=== PATIENT | female | born 1970 | race American Indian/Alaskan Native ===

== ENCOUNTER 2017-03-02 08:31 | Inpatient (IN) | payer OTHER ==
[2017-03-02 09:30] LABS: Anion Gap 19 mmol/L; BUN/Creatinine Ratio 16; Blood Urea Nitrogen 11 mg/dL (7-17); Calcium 9.3 mg/dL (8.4-10.2); Carbon Dioxide 23 mmol/L (22-30); Chloride 101.5 mmol/L (98-107); Glucose 91 mg/dL (65-100); Potassium 4.4 mmol/L (3.6-5.0); Sodium 139 mmol/L (137-145)
[2017-03-02 09:34] LABS: Basophils % (Auto) 1.1 % (0.0-1.8); Eosinophils % (Auto) 3.3 % (0.0-4.3); Hematocrit 40.6 % (30.3-42.9); Hemoglobin 13.2 gm/dl (10.1-14.3); Mean Corpuscular HGB Conc 33 % (30-34); Mean Corpuscular Hemoglobin 28 pg (28-32); Mean Corpuscular Volume 86 fl (79-97); Red Blood Count 4.73 M/mm3 (3.65-5.03); Red Cell Distribution Width 15.8 % (13.2-15.2); White Blood Count 6.7 K/mm3 (4.5-11.0)
[2017-03-02 09:44] LABS: Platelet Count 219 K/mm3 (140-440)
[2017-03-02] MEDS ORDERED: NACL 0.9% 1000 ML 1,000 ML IV ONE (12:45)
[2017-03-02] MEDS ORDERED: ASPIRIN PO ONE (12:45)
--- NOTE | 2017-03-02 13:18 | Emergency Department Report ---
ED Chest Pain HPI - General Chief Complaint: Chest Pain Stated Complaint: CHEST PAIN Time Seen by Provider: 03/02/17 12:24 Source: patient, EMS Mode of arrival: Ambulatory Limitations: No Limitations - History of Present Illness Initial Comments: 46 YO FEMALE WITH LEFT SIDED CHEST PAIN RADIATING TO HER LEFT BACK ASSOPCIATED WITH 2 EPISODES OF DIAPHORESIS, BUT NO N/V. THE PAIN WAS A 6/10 WHEN IT BEGAN BUT IS NOW 4/10. IT WAS SHARP,PRESSURE AND ACHY AT THE SAME TIMES. SHE TOOK TRAMADOL BUT HAD NO RELIEF AND WAS UNABLE TO SLEEP LAST NIGHT.. SHE HAD BEEN SMOKING FOR 10 YRS 6-7 CIGARETTES PER DAY. SHE DENIES HTN,DM, OR ELEVATED LIPIDS. SHE IS S/P HYSTERECTOMY BECAUSE OF LEIOMYOMA A FEW YRS AGO. PT WAS SEEN AT A [facility] TODAY WITH COMPLETE WORKUP AND SENT HER FOR ADMISSION AND STRESS TEST. MD Complaint: chest pain -: Gradual Onset: during rest Pain Location: left chest Pain Radiation: none Severity scale (0 -10): 3 Quality: tightness, aching, pressure Improves With: medication-other Worsens With: nothing re: diaphoresis - Related Data Home Medications Medication Instructions Recorded Confirmed Last Taken No Known Home Medications [No 03/02/17 03/02/17 Unknown Reported Home Medications] Allergies Allergy/AdvReac Type Severity Reaction Status Date / Time No Known Allergies Allergy Unverified 03/02/17 08:34 Heart Score - HEART Score History: Slightly suspicious EKG: Normal Age: 45-65 Risk factors: 1-2 risk factors Troponin: < normal limit HEART Score: 2 ED Review of Systems ROS: Stated complaint: CHEST PAIN Other details as noted in HPI Constitutional: denies: chills, fever Eyes: denies: eye pain, eye discharge, vision change ENT: denies: ear pain, throat pain Respiratory: denies: cough, shortness of breath, wheezing Cardiovascular: chest pain. denies: palpitations Endocrine: no symptoms reported, excessive sweating Gastrointestinal: denies: abdominal pain, nausea, diarrhea Genitourinary: denies: urgency, dysuria, discharge Musculoskeletal: denies: back pain, joint swelling, arthralgia Skin: denies: rash, lesions Neurological: denies: headache, weakness, paresthesias Psychiatric: denies: anxiety, depression Hematological/Lymphatic: denies: easy bleeding, easy bruising ED Past Medical Hx - Past Medical History Previous Medical History?: No - Surgical History Past Surgical History?: Yes Additional Surgical History: Hysterectomy, right knee , left hand surgery - Social History Smoking Status: Current Every Day Smoker Substance Use Type: Alcohol - Medications Home Medications: Home Medications Medication Instructions Recorded Confirmed Last Taken Type No Known Home Medications [No 03/02/17 03/02/17 Unknown History Reported Home Medications] ED Physical Exam - General Limitations: No Limitations General appearance: alert, in no apparent distress - Head Head exam: Present: atraumatic, normocephalic - Eye Eye exam: Present: normal appearance, EOMI - ENT ENT exam: Present: mucous membranes moist - Neck Neck exam: Present: normal inspection, full ROM - Respiratory Respiratory exam: Present: normal lung sounds bilaterally. Absent: respiratory distress, wheezes - Cardiovascular Cardiovascular Exam: Present: regular rate, normal rhythm. Absent: systolic murmur, diastolic murmur, rubs, gallop - GI/Abdominal GI/Abdominal exam: Present: soft, normal bowel sounds - Rectal Rectal exam: Present: deferred - Extremities Exam Extremities exam: Present: normal inspection, full ROM. Absent: pedal edema - Back Exam Back exam: Present: normal inspection, full ROM - Neurological Exam Neurological exam: Present: alert, oriented X3, CN II-XII intact - Psychiatric Psychiatric exam: Present: normal affect, normal mood - Skin Skin exam: Present: warm, dry, intact, normal color. Absent: rash ED Course Vital Signs 03/02/17 03/02/17 03/02/17 08:34 11:00 11:15 Temperature 98.4 F Pulse Rate 58 L 51 L 56 L Respiratory 20 16 12 Rate Blood Pressure 137/97 138/93 Blood Pressure [Left] O2 Sat by Pulse 100 100 100 Oximetry 03/02/17 03/02/17 03/02/17 11:31 11:44 11:45 Temperature 98.1 F Pulse Rate 47 L 55 L Respiratory 12 14 14 Rate Blood Pressure 138/93 Blood Pressure 138/93 [Left] O2 Sat by Pulse 100 100 100 Oximetry ARSH score - Arsh Score Age > 65: (0) No Aspirin use within the Past 7 Days: (0) No 3 or more CAD Risk Factors: (0) No 2 or more Angina events in past 24 hrs: (1) Yes Known CAD with more than 50% Stenosis: (0) No Elevated Cardiac Markers: (0) No ST Deviation Greater than 0.5mm: (0) No ARSH Score: 1 ED Medical Decision Making - Lab Data Result diagrams: 03/02/17 08:54 03/02/17 08:54 - EKG Data -: EKG Interpreted by Me EKG shows normal: sinus rhythm, axis, intervals - EKG Data Interpretation: nonspecific ST-T wave akira (IN INFERIOR LEAD) - Medical Decision Making CXR FROM THIS MORNING IS NEGATIVE FOR ACUTE FINDINGS , I WILL NOT REPEAT Critical care attestation.: If time is entered above; I have spent that time in minutes in the direct care of this critically ill patient, excluding procedure time. ED Disposition Clinical Impression: Chest pain Qualifiers: Chest pain type: unspecified Qualified Code(s): R07.9 - Chest pain, unspecified Disposition: -09 OP ADMIT IP TO THIS HOSP Is pt being admited?: Yes Does the pt Need Aspirin: No Condition: Stable Instructions: Chest Pain (ED) Referrals: PRIMARY CARE, [Primary Care Provider] - 3-5 Days Time of Disposition: 13:24 (CASE WAS REVIEWED WITH DR MORAN WHO WILL ADMIT [facility] PT TO THE HOSPITAL. DR SNOW OF [place] GAVE THE APPROVAL FOR PT TO REMAIN HER BECAUSE THEY HAVE NO BED.)
[2017-03-02] MEDS ORDERED: DULCOLAX PR PRN (13:22)
[2017-03-02] MEDS ORDERED: NITROSTAT SL PRN (13:22)
[2017-03-02] MEDS ORDERED: ZOFRAN IV PRN (13:22)
[2017-03-02] MEDS ORDERED: TYLENOL PO PRN (13:22)
[2017-03-02] MEDS ORDERED: SODIUM CHLORIDE FLUSH SYRINGE 10 ML IV PRN (13:22)
[2017-03-02] MEDS ORDERED: PROVENTIL IH PRN (13:22)
[2017-03-02] MEDS ORDERED: MILK OF MAGNESIA PO PRN (13:22)
[2017-03-02] MEDS ORDERED: NITRO-BID 2% TP ONE ×2 (13:28→15:48)
[2017-03-02] MEDS ORDERED: BABY ASPIRIN PO STA (13:34)
[2017-03-02 13:44] LABS: Alanine Aminotransferase 18 units/L (7-56); Albumin 4.1 g/dL (3.9-5); Albumin/Globulin Ratio 1.3 %; Alkaline Phosphatase 56 units/L (35-129); Lipase 25 units/L (13-60); Total Protein 7.2 g/dL (6.3-8.2)
[2017-03-02 13:45] LABS: Bilirubin,Direct < 0.2 mg/dL (0-0.2); Bilirubin,Indirect 0.7 mg/dL
[2017-03-02] MEDS ORDERED: BABY ASPIRIN ONE (15:47)
--- NOTE | 2017-03-02 16:21 | History and Physical Report ---
History of Present Illness Date of admission: 03/02/17 13:22 Chief complaint: My chest has been hurting me History of present illness: 46 YO Female with Nicotine Dependence presents to ED for evaluation. Pt states that she has experienced pain in her chest for the past 3 days with worsening symptoms over the past 12 hours. Pain is 4-7/10, intermittent, substernal, radiating to her left back, aching in nature, associated with diaphoresis, not worsened with exertion, or relieved with rest. Pt denies fever, chills, palpitations, shortness of breath, BRBPR, hemoptysis, prolonged immobility/ travel, leg/calf pain, individual/family history of DVT/PE, productive cough, or recent ill contacts. Pt seen and evaluated in ED and found to have symptoms consistent with ACS. Pt admitted to telemetry, Cardiology team consulted in ED. Past History Past Medical History: other (Nicotine Dependence) Past Surgical History: hysterectomy, Other (right Knee, Left hand surgery) Social history: single, smoking. denies: alcohol abuse, prescription drug abuse , IV drug use Family history: CAD, hypertension Medications and Allergies Allergies Allergy/AdvReac Type Severity Reaction Status Date / Time No Known Allergies Allergy Unverified 03/02/17 08:34 Home Medications Medication Instructions Recorded Confirmed Last Taken Type No Known Home Medications [No 03/02/17 03/02/17 Unknown History Reported Home Medications] Active Meds: Active Medications Acetaminophen (Tylenol) 650 mg PO Q4H PRN PRN Reason: Pain MILD(1-3)/Fever >100.5/BENDER Albuterol (Proventil) 2.5 mg IH Q4HRT PRN PRN Reason: Shortness Of Breath Bisacodyl (Dulcolax) 10 mg [place] QDAY PRN PRN Reason: Constipation unrelieved by MOM Famotidine (Pepcid) 20 mg PO BID OLGA Magnesium Hydroxide (Milk Of Magnesia) 30 ml PO Q4H PRN PRN Reason: Constipation Morphine Sulfate (Morphine) 2 mg IV Q4H PRN PRN Reason: Pain, Moderate (4-6) Nitroglycerin (Nitrostat) 0.4 mg SL Q5M PRN PRN Reason: Chest Pain Ondansetron HCl (Zofran) 4 mg IV Q8H PRN PRN Reason: N/V unrelieved by Reglan Sodium Chloride (Sodium Chloride Flush Syringe 10 Ml) 10 ml IV PRN PRN PRN Reason: LINE FLUSH Review of Systems Constitutional: no weight loss, no weight gain, no fever, no chills Ears, nose, mouth and throat: no ear pain, no ear discharge, no tinnitis, no decreased hearing Breasts: no change in shape, no swelling, no mass Cardiovascular: chest pain, no orthopnea, no palpitations, no rapid/irregular heart beat, no edema, no syncope, no lightheadedness Respiratory: no cough, no cough with sputum, no excessive sputum, no hemoptysis Gastrointestinal: no abdominal pain, no nausea, no vomiting, no diarrhea, no constipation Genitourinary Female: no pelvic pain, no flank pain, no menorrhagia, no dysuria Rectal: no pain, no incontinence, no bleeding Musculoskeletal: no neck stiffness, no neck pain, no shooting arm pain, no arm numbness/tingling Integumentary: no rash, no pruritis, no redness, no sores Neurological: no paralysis, no weakness, no parathesias, no numbness Psychiatric: no anxiety, no memory loss, no change in sleep habits, no sleep disturbances Endocrine: no cold intolerance, no heat intolerance, no polyphagia, no excessive thirst Hematologic/Lymphatic: no easy bruising, no easy bleeding Allergic/Immunologic: no urticaria, no allergic rhinitis, no wheezing Exam - Constitutional Vitals: Temp Pulse Resp BP Pulse Ox 98.1 F 55 L 15 138/93 100 03/02/17 11:44 03/02/17 11:44 03/02/17 15:35 03/02/17 11:44 03/02/17 15:35 General appearance: Present: mild distress - EENT Eyes: Present: PERRL ENT: hearing intact, clear oral mucosa - Neck Neck: Present: supple, normal ROM - Respiratory Respiratory effort: normal Respiratory: bilateral: CTA - Cardiovascular Heart Sounds: Present: S1 & S2. Absent: rub, click - Extremities Extremities: pulses symmetrical, No edema Peripheral Pulses: within normal limits - Abdominal General gastrointestinal: Present: soft, non-tender, non-distended, normal bowel sounds Female genitourinary: Present: normal - Integumentary Integumentary: Present: clear, warm, dry - Musculoskeletal Musculoskeletal: gait normal, strength equal bilaterally - Psychiatric Psychiatric: appropriate mood/affect, intact judgment & insight - Neurologic Neurologic: CNII-XII intact, moves all extremities Results - Labs CBC & Chem 7: 03/02/17 08:54 03/02/17 08:54 Labs: Abnormal lab results 03/02/17 Range/Units 08:54 RDW 15.8 H (13.2-15.2) % [place] % (Auto) 7.7 H (0.0-7.3) % Assessment and Plan - Patient Problems (1) ACS (acute coronary syndrome) Current Visit: Yes Status: Acute Plan to address problem: ACS protocol: Admit to telemetry, serial cardiac enzymes, ekg, telemetry, echo, stress test, cardiology consulted, morphine, nitro tabs, supplemental oxygen, aspirin (2) Nicotine dependence Current Visit: Yes Status: Acute Plan to address problem: Pt counseled, no quit date reported. (3) DVT prophylaxis Current Visit: Yes Status: Acute Plan to address problem: SCD to bLE while in bed.
[2017-03-02] MEDS: MORPHINE IV PRN ×2 (18:31→22:04)
[2017-03-02] MEDS ORDERED: PEPCID PO SCH (22:00)
[2017-03-02 22:40] LABS: Urine Drugs of Abuse Note Disclamer
[2017-03-02 23:06] LABS: RBC,Urine < 1.0 /HPF (0.0-6.0); WBC,Urine < 1.0 /HPF (0.0-6.0)
[2017-03-02 23:11] LABS: Bilirubin,Urine Negative (Negative); Ketones,Urine Negative (Negative)
[2017-03-02 23:12] LABS: Blood,Urine Negative (Negative); Leukocyte Esterase,Urine Negative (Negative); Nitrite,Urine Negative (Negative); Protein,Urine <15 mg/dL mg/dL (Negative); Urobilinogen,Urine < 2.0 mg/dL (<2.0)
[2017-03-03] MEDS: MORPHINE IV PRN (04:56)
--- NOTE | 2017-03-03 08:11 | Progress Note ---
Hospitalist Physical - Constitutional Vitals: Temp Pulse Resp BP Pulse Ox 98.3 F 64 18 131/88 99 03/03/17 04:20 03/03/17 04:20 03/03/17 05:26 03/03/17 04:20 03/03/17 04:20 General appearance: Present: mild distress Results - Labs CBC & Chem 7: 03/02/17 08:54 03/02/17 08:54 Labs: Laboratory Last Values WBC 6.7 K/mm3 (4.5-11.0) 03/02/17 08:54 RBC 4.73 M/mm3 (3.65-5.03) 03/02/17 08:54 Hgb 13.2 gm/dl (10.1-14.3) 03/02/17 08:54 Hct 40.6 % (30.3-42.9) 03/02/17 08:54 MCV 86 fl (79-97) 03/02/17 08:54 MCH 28 pg (28-32) 03/02/17 08:54 MCHC 33 % (30-34) 03/02/17 08:54 RDW 15.8 % (13.2-15.2) H 03/02/17 08:54 Plt Count 219 K/mm3 (140-440) 03/02/17 08:54 Lymph % (Auto) 33.8 % (13.4-35.0) 03/02/17 08:54 [place] % (Auto) 7.7 % (0.0-7.3) H 03/02/17 08:54 Eos % (Auto) 3.3 % (0.0-4.3) 03/02/17 08:54 Baso % (Auto) 1.1 % (0.0-1.8) 03/02/17 08:54 Lymph # 2.3 K/mm3 (1.2-5.4) 03/02/17 08:54 [place] # 0.5 K/mm3 (0.0-0.8) 03/02/17 08:54 Eos # 0.2 K/mm3 (0.0-0.4) 03/02/17 08:54 Baso # 0.1 K/mm3 (0.0-0.1) 03/02/17 08:54 Seg Neutrophils % 54.1 % (40.0-70.0) 03/02/17 08:54 Seg Neutrophils # 3.6 K/mm3 (1.8-7.7) 03/02/17 08:54 D-Dimer 167.18 ng/mlDDU (0-234) 03/02/17 12:55 Sodium 139 mmol/L (137-145) 03/02/17 08:54 Potassium 4.4 mmol/L (3.6-5.0) 03/02/17 08:54 Chloride 101.5 mmol/L (98-107) 03/02/17 08:54 Carbon Dioxide 23 mmol/L (22-30) 03/02/17 08:54 Anion Gap 19 mmol/L 03/02/17 08:54 BUN 11 mg/dL (7-17) 03/02/17 08:54 Creatinine 0.7 mg/dL (0.7-1.2) 03/02/17 08:54 Estimated GFR > 60 ml/min 03/02/17 08:54 BUN/Creatinine Ratio 16 % 03/02/17 08:54 Glucose 91 mg/dL (65-100) 03/02/17 08:54 Calcium 9.3 mg/dL (8.4-10.2) 03/02/17 08:54 Total Bilirubin 0.90 mg/dL (0.1-1.2) 03/02/17 12:55 Direct Bilirubin < 0.2 mg/dL (0-0.2) 03/02/17 12:55 Indirect Bilirubin 0.7 mg/dL 03/02/17 12:55 AST 22 units/L (5-40) 03/02/17 12:55 ALT 18 units/L (7-56) 03/02/17 12:55 Alkaline Phosphatase 56 units/L (35-129) 03/02/17 12:55 Troponin T < 0.010 ng/mL (0.00-0.029) 03/02/17 19:30 NT-Pro-B Natriuret Pep 42.83 pg/mL (0-450) 03/02/17 12:55 Total Protein 7.2 g/dL (6.3-8.2) 03/02/17 12:55 Albumin 4.1 g/dL (3.9-5) 03/02/17 12:55 Albumin/Globulin Ratio 1.3 % 03/02/17 12:55 Triglycerides 107 mg/dL (2-149) 03/02/17 12:55 Cholesterol 146 mg/dL (50-199) 03/02/17 12:55 LDL Cholesterol Direct 76 mg/dL (50-130) 03/02/17 12:55 HDL Cholesterol 49 mg/dL (40-59) 03/02/17 12:55 Cholesterol/HDL Ratio 2.97 % 03/02/17 12:55 Lipase 25 units/L (13-60) 03/02/17 12:55 Urine Color Yellow (Yellow) 03/02/17 22:08 Urine Turbidity Clear (Clear) 03/02/17 22:08 Urine pH 6.0 (5.0-7.0) 03/02/17 22:08 Ur Specific [place] 1.010 (1.003-1.030) 03/02/17 22:08 Urine Protein <15 mg/dl mg/dL (Negative) 03/02/17 22:08 Urine Glucose (UA) Negative mg/dL (Negative) 03/02/17 22:08 Urine Ketones Negative mg/dL (Negative) 03/02/17 22:08 Urine Blood Negative (Negative) 03/02/17 22:08 Urine Nitrite Negative (Negative) 03/02/17 22:08 Ur Reducing Substances Not Reportable 03/02/17 22:08 Urine Bilirubin Negative (Negative) 03/02/17 22:08 Urine Ictotest Not Reportable 03/02/17 22:08 Urine Urobilinogen < 2.0 mg/dL (<2.0) 03/02/17 22:08 Ur Leukocyte Esterase Negative (Negative) 03/02/17 22:08 Urine WBC (Auto) < 1.0 /HPF (0.0-6.0) 03/02/17 22:08 Urine RBC (Auto) < 1.0 /HPF (0.0-6.0) 03/02/17 22:08 U Epithel Cells (Auto) < 1.0 /HPF (0-13.0) 03/02/17 22:08 Urine Opiates Screen Presumptive negative 03/02/17 22:08 Urine Methadone Screen Presumptive negative 03/02/17 22:08 Ur Barbiturates Screen Presumptive negative 03/02/17 22:08 Ur Phencyclidine Scrn Presumptive negative 03/02/17 22:08 Ur Amphetamines Screen Presumptive negative 03/02/17 22:08 U Benzodiazepines Scrn Presumptive negative 03/02/17 22:08 Urine Cocaine Screen Presumptive negative 03/02/17 22:08 U Marijuana (THC) Screen Presumptive negative 03/02/17 22:08 Drugs of Abuse Note Disclamer 03/02/17 22:08
[2017-03-03 09:54] VITALS: BP 130/76
[2017-03-03] MEDS ORDERED: LEXISCAN IV ONE (11:00)
--- NOTE | 2017-03-03 12:54 | Event Note ---
Date: 03/03/17 Stress thallium test completed: normal myocardial perfusion scan.
--- NOTE | 2017-03-03 14:11 | Discharge Summary ---
<LYNN ROMAN - Last Filed: 03/03/17 14:20> Providers - Providers Date of Admission: 03/02/17 13:22 Date of discharge: 03/03/17 Attending physician: ELISHA TALAVERA MD 03/02/17 Consult to Cardiac Rehabilitation [CONS] Routine Reason For Exam: Phase I 03/02/17 13:22 Consult to Cardiology [CONS] Routine Consulting Provider: VITOR NDIAYE Reason For Exam: acs Primary care physician: NETWORK OPERATIONS SPECIALIST Hospitalization Reason for admission: Chest Pain Condition: Stable Hospital course: Patient is a 46 years old Female with Nicotine Dependence presents who presented to the Emergency Department complaining of Midsternal chest pain. She states that the pain began 3 days ago constant midsternal chest pain. Patient was diagnosed with chest pain and tobacco abuse. Patient presented with atypical chest pain, ACS was ruled out, stress thallium test completed, normal myocardial perfusion scan, negative cardiac enzymes, ECGs shows normal sinus rythm, CXR WNL. Patient chest pain probably from musculoskeletal. Smoking cessation counseling done patient is strongly advised to quit. Patient agrees upon course of action. She was treated with IV fluid hydration. Patient is clinically improved. Patient advised to follow-up with her primary care provider. Discharge Diagnosed Chest Pain due to Costochondritis Tobacco abuse Disposition: DC- TO HOME OR SELFCARE Core Measure Documentation - Palliative Care Palliative Care/ Comfort Measures: Not Applicable - Core Measures Any of the following diagnoses?: none Exam - Constitutional Vitals: Temp Pulse Resp BP Pulse Ox 98.3 F 66 18 130/76 98 03/03/17 07:47 03/03/17 07:47 03/03/17 07:47 03/03/17 07:47 03/03/17 10:00 General appearance: Present: no acute distress - EENT Eyes: Present: PERRL ENT: hearing intact - Neck Neck: Present: supple - Respiratory Respiratory effort: normal Respiratory: bilateral: CTA - Cardiovascular Rhythm: regular Heart Sounds: Present: S1 & S2 - Abdominal General gastrointestinal: Present: soft, non-tender Female genitourinary: Present: deferred - Rectal Rectal Exam: deferred - Integumentary Integumentary: Present: clear, warm, dry - Musculoskeletal Musculoskeletal: strength equal bilaterally - Psychiatric Psychiatric: appropriate mood/affect - Neurologic Neurologic: moves all extremities - Allied Health Allied health notes reviewed: nursing Plan Diet: low fat, low cholesterol, low salt Follow up with: PRIMARY CAREMD [Primary Care Provider] - 3-5 Days Prescriptions: Ibuprofen 800 mg PO Q8H PRN #10 tablet PRN Reason: Pain , Severe (7-10) <ELISHA TALAVERA - Last Filed: 03/18/17 16:03> Providers - Providers Date of Admission: 03/02/17 13:22 Attending physician: ELISHA TALAVERA MD 03/02/17 Consult to Cardiac Rehabilitation [CONS] Routine Reason For Exam: Phase I 03/02/17 13:22 Consult to Cardiology [CONS] Routine Consulting Provider: VITOR NDIAYE Reason For Exam: acs Primary care physician: NET[employer]PERATIONS SPECIALIST Exam - Constitutional Vitals: Temp Pulse Resp BP Pulse Ox 98.3 F 57 L 18 130/76 98 03/03/17 07:47 03/03/17 10:00 03/03/17 07:47 03/03/17 07:47 03/03/17 10:00
--- NOTE | 2017-03-24 20:29 | Treadmill Report ---
THALLIUM STRESS TEST LEFT VENTRICLE: Left ventricular chamber size is within normal. Perfusion study demonstrates small fixed apical defect consistent with normal apical thinning. Otherwise, homogeneous uptake of the tracer in all segments, no significant perfusion defects identified. Gated analysis demonstrates normal left ventricular systolic function, ejection fraction greater than 70%. CONCLUSION: Normal myocardial perfusion study. [facility]# [id number] CA/NTS
== END 2017-03-03 14:14 | disposition home or self-care (01) | DRG 206 ==
LOC: ED 08:31 → 4A 13:22
PROVIDERS: ADMIT Internal Medicine; ATTEND Internal Medicine
DX: M94.0 Chondrocostal junction syndrome [Tietze] (principal); F17.210 Nicotine dependence, cigarettes, uncomplicated; Z90.710 Acquired absence of both cervix and uterus; Z82.49 Family history of ischemic heart disease and other diseases of the circulatory system
CPT/HCPCS: 36415; 78452; 80048; 80061; 80074; 80307; 81001; 83690; 83880; 84484; 85025; 85379; 93005; 93010; 93017; 93306; 96360; 96361; A9502; J2270; J2785; J7030